=== PATIENT | female | born 1945 | race Caucasian/White ===

== ENCOUNTER → 2018-09-23 | Outpatient (CLI) | payer MEDICARE, OTHER | END | disposition home or self-care (01) | LOC: CFH 10:23 | PROVIDERS: ATTEND Family Medicine | DX: I08.3 Combined rheumatic disorders of mitral, aortic and tricuspid valves (principal); I11.9 Hypertensive heart disease without heart failure; E11.9 Type 2 diabetes mellitus without complications; E78.5 Hyperlipidemia, unspecified; R01.1 Cardiac murmur, unspecified; R06.02 Shortness of breath; Z86.73 Personal history of transient ischemic attack (TIA), and cerebral infarction without residual deficits | CPT/HCPCS: 93306 ==

== ENCOUNTER 2018-11-21 09:30 | Day surgery (SDC) | payer MEDICARE, OTHER ==
[~2018-11-21] VITALS: Ht 157.5 cm; Wt 104.5 kg
[2018-11-21] MEDS ORDERED: SODIUM CHLORIDE 0.9% 1,000 ML IV SCH (09:45)
[2018-11-21 09:53] VITALS: BP 167/87
[2018-11-21] MEDS ORDERED: MULT-658 PO (09:59)
[2018-11-21] MEDS ORDERED: METF500T17 PO (09:59)
[2018-11-21] MEDS ORDERED: IBUP200C8 PO (09:59)
[2018-11-21] MEDS ORDERED: ATOR40TA78 PO (09:59)
[2018-11-21] MEDS ORDERED: MOEX7.5T2 PO (09:59)
[2018-11-21] MEDS ORDERED: ASPI-650 PO (09:59)
[2018-11-21 10:26] LABS: BASOPHILS # (AUTO) 0.04 x10^3/uL (0-0.1); BASOPHILS % (AUTO) 1 % (0-1); EOSINOPHILS # (AUTO) 0.16 x10^3/uL (0-0.4); EOSINOPHILS % (AUTO) 2 % (1-7); LYMPHOCYTES # (AUTO) 2.68 x10^3/uL (1-3.4); LYMPHOCYTES % (AUTO) 32 % (22-44); MD NO; MEAN CORPUSCULAR HEMOGLOBIN 31.4 pg (27.0-34.8); MEAN CORPUSCULAR HGB CONC 33.6 g/dL (32.4-35.8); MEAN CORPUSCULAR VOLUME 93.3 fL (80-100); MEAN PLATELET VOLUME 8.6 fL (7.4-10.4); MONOCYTES # (AUTO) 0.66 x10^3/uL (0.2-0.8); MONOCYTES % (AUTO) 8 % (2-9); NEUTROPHILS # (AUTO) 4.89 x10^3/uL (1.8-6.8); NEUTROPHILS % (AUTO) 58 % (42-75); PLATELET COUNT 170 x10^3/uL (130-400); RED BLOOD COUNT 4.44 x10^6/uL (3.82-5.3); RED CELL DISTRIBUTION WIDTH 13.6 % (9.6-15.2)
[2018-11-21] MEDS ORDERED: PLEASE ENTER HEIGHT AND WEIGHT MC SCH (10:30)
[2018-11-21 10:36] LABS: ANION GAP 7 mmol/L (5-15); CALCIUM 9.1 mg/dL (8.5-10.1); CHLORIDE 109 mmol/L (98-107); CREATININE 0.78 mg/dL (0.55-1.02)
[2018-11-21] MEDS ORDERED: BIVALIRUDIN 250 MG ONE (11:26)
[2018-11-21] MEDS ORDERED: TICAGRELOR 90 MG TABLET ONE (11:26)
[2018-11-21] MEDS ORDERED: HEPARIN 1,000 UNITS/ML, 10ML ONE (11:26)
[2018-11-21] MEDS ORDERED: LIDOCAINE 2%, 20ML ONE (11:26)
[2018-11-21] MEDS ORDERED: FENTANYL PF 100 MCG/2ML ONE (11:26)
[2018-11-21] MEDS ORDERED: VERAPAMIL 2.5 MG/ML, 2ML ONE (11:26)
[2018-11-21] MEDS ORDERED: MIDAZOLAM 1 MG/ML, 5ML ONE (11:26)
[2018-11-21] MEDS ORDERED: NITROGLYCERIN 5 MG/ML, 10ML ONE (11:26)
== END 2018-11-21 14:58 | disposition home or self-care (01) ==
LOC: CACL 09:30
PROVIDERS: ATTEND Internal Medicine Cardiovascular Disease
DX: I35.0 Nonrheumatic aortic (valve) stenosis (principal); E11.9 Type 2 diabetes mellitus without complications; E78.00 Pure hypercholesterolemia, unspecified; I10 Essential (primary) hypertension; Z86.73 Personal history of transient ischemic attack (TIA), and cerebral infarction without residual deficits; Z79.82 Long term (current) use of aspirin; Z79.84 Long term (current) use of oral hypoglycemic drugs
CPT/HCPCS: 36415; 80048; 85025; 93458; 99156; C1769; C1894; J1644; J2250; J3010; Q9967; J0583

== ENCOUNTER 2018-12-08 10:22 | Outpatient (CLI) | payer MEDICARE, OTHER ==
[~2018-12-08 10:22] MED LIST: ASPI-650 PO; ATOR40TA78 PO; IBUP200C8 PO; METF500T17 PO; MOEX7.5T2 PO; MULT-658 PO
[2018-12-08] MEDS ORDERED: METOPROLOL 1 MG/ML, 5ML ONE ×2 (11:09→11:26)
[2018-12-08] MEDS ORDERED: OMNIPAQUE 350 MG/ML, 150 ML BOTTLE ONE (11:59)
== END 2018-12-08 23:59 | disposition home or self-care (01) ==
LOC: RAD 10:22
PROVIDERS: ATTEND Internal Medicine Cardiovascular Disease
DX: I65.22 Occlusion and stenosis of left carotid artery (principal); I35.0 Nonrheumatic aortic (valve) stenosis
CPT/HCPCS: 71275; 74174; 93880; 94010; 94726; 94729; Q9967

== ENCOUNTER 2018-12-13 14:00 | Inpatient (IN) | payer MEDICARE, OTHER ==
[~2018-12-13] VITALS: Ht 157.5 cm; Wt 107.6 kg
[2018-12-20] MEDS ORDERED: CHLORHEXIDINE 15 ML UDC ONE (08:42)
[2018-12-20] MEDS ORDERED: SODIUM CHLORIDE 0.9% 1,000 ML IV ONE (09:11)
[2018-12-20 09:15] VITALS: BP 133/55
[2018-12-20] MEDS ORDERED: CHLORHEXIDINE 15 ML UDC MM PRN (09:30)
[2018-12-20] MEDS: PLEASE ENTER HEIGHT AND WEIGHT MC SCH ×2 (09:30→15:49)
[2018-12-20] MEDS ORDERED: ONDANSETRON 2MG/ML, 2ML IVPush PRN (09:30)
[2018-12-20 10:00] LABS: BASOPHILS # (AUTO) 0.04 x10^3/uL (0-0.1); BASOPHILS % (AUTO) 1 % (0-1); EOSINOPHILS # (AUTO) 0.13 x10^3/uL (0-0.4); EOSINOPHILS % (AUTO) 2 % (1-7); LYMPHOCYTES # (AUTO) 2.47 x10^3/uL (1-3.4); LYMPHOCYTES % (AUTO) 33 % (22-44); MD NO; MEAN CORPUSCULAR HEMOGLOBIN 31.4 pg (27.0-34.8); MEAN CORPUSCULAR HGB CONC 32.8 g/dL (32.4-35.8); MEAN CORPUSCULAR VOLUME 95.7 fL (80-100); MEAN PLATELET VOLUME 8.8 fL (7.4-10.4); MONOCYTES # (AUTO) 0.57 x10^3/uL (0.2-0.8); MONOCYTES % (AUTO) 8 % (2-9); NEUTROPHILS # (AUTO) 4.21 x10^3/uL (1.8-6.8); NEUTROPHILS % (AUTO) 57 % (42-75); PLATELET COUNT 161 x10^3/uL (130-400); RED BLOOD COUNT 4.51 x10^6/uL (3.82-5.3); RED CELL DISTRIBUTION WIDTH 13.6 % (9.6-15.2)
[2018-12-20 10:08] LABS: INTERNATIONAL NORMALIZED RATIO 1.05 (0.93-1.1)
[2018-12-20 10:10] LABS: ALANINE AMINOTRANSFERASE 32 U/L (12-78); ALBUMIN 3.7 g/dL (3.4-5.0); ANION GAP 8 mmol/L (5-15); CALCIUM 9.2 mg/dL (8.5-10.1); CHLORIDE 107 mmol/L (98-107); CREATININE 0.84 mg/dL (0.55-1.02)
[2018-12-20 10:14] LABS: ALKALINE PHOSPHATASE 73 U/L (45-117); BILIRUBIN,TOTAL 0.8 mg/dL (0.2-1.0); TOTAL PROTEIN 7.3 g/dL (6.4-8.2)
[2018-12-20] MEDS ORDERED: FENTANYL PF 250 MCG/5ML ONE (10:58)
[2018-12-20] MEDS ORDERED: PROPOFOL 10 MG/ML, 20ML ONE (11:16)
[2018-12-20] MEDS ORDERED: ROCURONIUM 10 MG/ML,10ML ONE (11:16)
[2018-12-20] MEDS ORDERED: SUCCINYLCHOLINE 20 MG/ML, 10ML ONE (11:38)
[2018-12-20] MEDS ORDERED: HEPARIN 1,000 UNITS/ML, 10ML ONE (11:38)
[2018-12-20] MEDS ORDERED: LABETALOL 20 MG/4 ML IVPush PRN (13:00)
[2018-12-20] MEDS ORDERED: hydrALAzine 20 MG/ML, 1ML IVPush PRN (13:00)
[2018-12-20] MEDS ORDERED: GLUCAGON 1 MG IM PRN (13:00)
[2018-12-20] MEDS: ASPIRIN 81 MG TABLET EC PO SCH (13:00)
[2018-12-20] MEDS ORDERED: HYDROcodone/APAP 5/325 TABLET PO PRN (13:00)
[2018-12-20] MEDS ORDERED: ACETAMINOPHEN 325 MG TABLET PO PRN (13:00)
[2018-12-20] MEDS ORDERED: DEXTROSE 4 GM TAB.CHEW PO PRN (13:00)
[2018-12-20] MEDS ORDERED: CLOPIDOGREL 300 MG TABLET PO ONE (13:00)
[2018-12-20] MEDS ORDERED: DEXTROSE 50%, 50ML SYRINGE IVPush PRN (13:00)
[2018-12-20 20:31] VITALS: BP 150/63
[2018-12-20] MEDS ORDERED: ATORVASTATIN 40 MG TABLET PO SCH (21:00)
[2018-12-20] MEDS: SODIUM CHLORIDE FLUSH 10ML SYR IVF SCH (21:29)
[2018-12-20] MEDS: ZOLPIDEM 5MG TABLET PO PRN (21:29)
[2018-12-21] MEDS: ZOLPIDEM 5MG TABLET PO PRN (00:59)
[2018-12-21 04:23] VITALS: BP 138/58
[2018-12-21 04:47] LABS: ANION GAP 8 mmol/L (5-15); BASOPHILS # (AUTO) 0.03 x10^3/uL (0-0.1); BASOPHILS % (AUTO) 0 % (0-1); CALCIUM 8.4 mg/dL (8.5-10.1); CHLORIDE 108 mmol/L (98-107); EOSINOPHILS # (AUTO) 0.13 x10^3/uL (0-0.4); EOSINOPHILS % (AUTO) 1 % (1-7); LYMPHOCYTES # (AUTO) 1.92 x10^3/uL (1-3.4); LYMPHOCYTES % (AUTO) 20 % (22-44); MD NO; MEAN CORPUSCULAR HEMOGLOBIN 31.3 pg (27.0-34.8); MEAN CORPUSCULAR HGB CONC 32.9 g/dL (32.4-35.8); MEAN CORPUSCULAR VOLUME 95.3 fL (80-100); MEAN PLATELET VOLUME 8.7 fL (7.4-10.4); MONOCYTES # (AUTO) 0.78 x10^3/uL (0.2-0.8); MONOCYTES % (AUTO) 8 % (2-9); NEUTROPHILS # (AUTO) 6.77 x10^3/uL (1.8-6.8); NEUTROPHILS % (AUTO) 70 % (42-75); PLATELET COUNT 130 x10^3/uL (130-400); RED BLOOD COUNT 3.86 x10^6/uL (3.82-5.3); RED CELL DISTRIBUTION WIDTH 13.3 % (9.6-15.2)
[2018-12-21 04:48] LABS: CREATININE 0.79 mg/dL (0.55-1.02)
[2018-12-21] MEDS: ASPIRIN 81 MG TABLET EC PO SCH (08:24)
[2018-12-21] MEDS: SODIUM CHLORIDE FLUSH 10ML SYR IVF SCH (08:26)
[2018-12-21 08:28] VITALS: BP 157/64
[2018-12-21] MEDS ORDERED: ASPI81TA45 PO (08:34)
[2018-12-21] MEDS ORDERED: CLOP75TA PO (08:34)
[2018-12-21] MEDS ORDERED: IBUPROFEN 200 MG TABLET PO SCH (09:00)
[2018-12-21] MEDS ORDERED: CLOPIDOGREL 75 MG TABLET PO SCH (09:00)
[2018-12-21] MEDS ORDERED: [UNRECOGNIZED DRUG - OTHER] PO SCH (09:00)
== END 2018-12-21 13:41 | disposition home or self-care (01) | DRG 266 ==
LOC: ORIP 12-20 08:15 → CSU 12-20 11:13 → DCLOUNGE 12-21 13:16
PROVIDERS: ADMIT Internal Medicine Cardiovascular Disease; ATTEND Internal Medicine Cardiovascular Disease
PROC: B246ZZ4 Ultrasonography of Right and Left Heart, Transesophageal (ICD-10-PCS; 2018-12-20)
PROC: 03HY32Z Insertion of Monitoring Device into Upper Artery, Percutaneous Approach (ICD-10-PCS; 2018-12-20)
PROC: 02RF38Z Replacement of Aortic Valve with Zooplastic Tissue, Percutaneous Approach (ICD-10-PCS; principal; 2018-12-20 12:00)
DX: I35.0 Nonrheumatic aortic (valve) stenosis (principal); I50.33 Acute on chronic diastolic (congestive) heart failure; G45.9 Transient cerebral ischemic attack, unspecified; Z00.6 Encounter for examination for normal comparison and control in clinical research program; E11.9 Type 2 diabetes mellitus without complications; E66.9 Obesity, unspecified; E78.5 Hyperlipidemia, unspecified; Z82.49 Family history of ischemic heart disease and other diseases of the circulatory system; Z86.73 Personal history of transient ischemic attack (TIA), and cerebral infarction without residual deficits; I11.0 Hypertensive heart disease with heart failure
CPT/HCPCS: 33361; 36415; 80048; 80053; 83880; 85025; 85347; 85610; 85730; 86850; 86900; 86923; 87081; 93005; 93308; 93312; 93321; 93325; 93355; C1760; C1769; C1894; G0378; J1644; J2704; J3010; J0330; Q9967

== ENCOUNTER 2019-01-24 11:29 | Outpatient (CLI) | payer MEDICARE, OTHER ==
[~2019-01-24 11:29] MED LIST changes: +ASPI81TA45 PO; +CLOP75TA PO
== END 2019-01-24 23:59 | disposition home or self-care (01) ==
LOC: CVU 11:29
PROVIDERS: ATTEND Internal Medicine Cardiovascular Disease
DX: I08.1 Rheumatic disorders of both mitral and tricuspid valves (principal); I10 Essential (primary) hypertension; E78.5 Hyperlipidemia, unspecified
CPT/HCPCS: 93306